=== PATIENT | female | born 1945 | race Native Hawaiian/Other Pacific Islander ===

== ENCOUNTER 2017-06-06 11:59 | Observation (INO) | payer OTHER ==
[~2017-06-06] VITALS: Ht 160 cm; Wt 77.6 kg
[~2017-06-06 11:59] MED LIST: ASPIR-8181 MG PO; ASPIRIN LOW81 MG OR; BENICAR20 MG PO; COZAAR100 MG PO; CRESTOR5 MG PO; ESTRACE0.5 MG PO; GABA100C2 PO; LORAZEPAM0.5 MG PO; MOBIC15 MG PO; PROMSYP53 PO
[2017-06-06 13:07] VITALS: BP 142/77; TEMP 98.7; Ht 160 cm; Wt 77.6 kg
[2017-06-06 13:50] LABS: PLATELET COUNT 284 K/uL (152-353)
[2017-06-06] MEDS ORDERED: SMZ-TMP DS1 TAB OR (15:10)
[2017-06-06] MEDS ORDERED: NYST100010 EX (15:11)
[2017-06-06] MEDS ORDERED: LORA0.5T17 PO (15:11)
[2017-06-06] MEDS ORDERED: TRIA0.1C19 TOP (15:13)
[2017-06-06] MEDS ORDERED: CLARITIN10 M1 PO (15:13)
[2017-06-06 16:00] VITALS: BP 142/77; TEMP 98.4
[2017-06-06 20:00] VITALS: BP 134/63; TEMP 98.3
[2017-06-07] VITALS: BP 110/61; TEMP 98
[2017-06-07 04:00] VITALS: BP 137/62; TEMP 98.1
[2017-06-07 05:01] LABS: PLATELET COUNT 259 K/uL (152-353)
[2017-06-07 07:58] VITALS: BP 129/57; TEMP 98.3
[2017-06-07 12:00] VITALS: BP 131/53; TEMP 98.3
[2017-06-07 16:00] VITALS: BP 145/68; TEMP 97.8
== END 2017-06-07 16:30 | disposition home or self-care (01) ==
LOC: MED/SURG 11:59
PROVIDERS: Emergency Medicine; ADMIT Nurse Practitioner Family
DX: R06.02 Shortness of breath (principal); I10 Essential (primary) hypertension; R05 Cough
CPT/HCPCS: 36415; 36591; 80053; 83735; 85027; 87040; 87070; 87205; 87899; 93005; 94640; 94664; 94760; 96367; 96374; 99220; G0378; G0379

== ENCOUNTER 2017-07-11 08:39 | Outpatient (CLI) | payer OTHER ==
[~2017-07-11 08:39] MED LIST changes: +CLARITIN10 M1 PO; +LORA0.5T17 PO; +NYST100010 EX; +SMZ-TMP DS1 TAB OR; +TRIA0.1C19 TOP
== END 2017-07-11 19:14 | disposition home or self-care (01) ==
LOC: US 08:39
DX: R60.0 Localized edema (principal)

== ENCOUNTER 2018-02-02 16:19 | Outpatient (CLI) | payer OTHER | END 2018-02-02 19:43 | disposition home or self-care (01) | LOC: LABW 16:19 | DX: N30.00 Acute cystitis without hematuria (principal) | CPT/HCPCS: 81000; 87077; 87086; 87088; 87186 ==

== ENCOUNTER 2019-04-08 11:17 | Emergency (ER) | payer OTHER ==
[~2019-04-08] VITALS: Ht 160 cm; Wt 78.5 kg
[2019-04-08 11:30] VITALS: TEMP 98.6
[2019-04-08 12:48] LABS: PLATELET COUNT 292 K/uL (152-353)
[2019-04-08 14:10] VITALS: BP 134/77
== END 2019-04-08 14:10 | disposition home or self-care (01) ==
LOC: ED 11:17
PROVIDERS: Hospitalist
DX: J40 Bronchitis, not specified as acute or chronic (principal); R05 Cough
CPT/HCPCS: 36415; 80048; 85027; 87502; 87651; 99283

== ENCOUNTER 2019-06-27 10:54 | Observation (INO) | payer OTHER ==
[~2019-06-27] VITALS: Ht 160 cm; Wt 85.9 kg
[2019-06-27 10:56] VITALS: BP 140/69; TEMP 97.3
[2019-06-27 11:31] LABS: PLATELET COUNT 226 K/uL (152-353)
[2019-06-27 11:38] LABS: POTASSIUM 3.2 mmol/L (3.6-5.2)
[2019-06-27] MEDS ORDERED: METR250T19 PO (14:26)
[2019-06-27] MEDS ORDERED: CIPRO250 MG PO (14:26)
[2019-06-27] MEDS ORDERED: [UNRECOGNIZED DRUG - OTHER] PO (14:27)
[2019-06-27] MEDS ORDERED: BENICAR40 MG PO (14:27)
[2019-06-27] MEDS ORDERED: REQUIP0.25 MG PO (14:29)
[2019-06-27] MEDS ORDERED: LEXAPRO10 MG PO (14:30)
[2019-06-27] MEDS ORDERED: ZOFRAN8 MG PO (14:32)
[2019-06-27 16:00] VITALS: BP 137/64; TEMP 97.9
[2019-06-27 16:35] VITALS: BP 141/66; TEMP 97.9; Ht 160 cm; Wt 85.9 kg
[2019-06-27 19:45] VITALS: BP 150/66; TEMP 97.9
[2019-06-28] VITALS: BP 137/69; TEMP 97.9
[2019-06-28 03:58] VITALS: BP 142/69; TEMP 97.8
[2019-06-28 05:25] LABS: PLATELET COUNT 161 K/uL (152-353)
[2019-06-28 05:35] LABS: POTASSIUM 4.7 mmol/L (3.6-5.2)
[2019-06-28 08:00] VITALS: BP 160/68; TEMP 98.9
[2019-06-28 12:00] VITALS: BP 134/60; TEMP 98.1
[2019-06-28 16:00] VITALS: BP 144/55; TEMP 97.6
[2019-06-28 20:00] VITALS: BP 118/56; TEMP 98.2
[2019-06-29] VITALS: BP 136/71; TEMP 99.1
[2019-06-29 04:00] VITALS: BP 146/64; TEMP 98.2
[2019-06-29 04:16] LABS: PLATELET COUNT 187 K/uL (152-353)
[2019-06-29 05:05] LABS: POTASSIUM 4.1 mmol/L (3.6-5.2)
[2019-06-29 08:00] VITALS: BP 154/73; TEMP 98.4
[2019-06-30] MEDS ORDERED: METR250T19 PO (19:31)
== END 2019-06-29 11:38 | disposition home or self-care (01) ==
LOC: ED 10:54 → MED/SURG 12:36
PROVIDERS: Family Medicine; ADMIT Emergency Medicine
DX: K52.89 Other specified noninfective gastroenteritis and colitis (principal); N17.8 Other acute kidney failure; E86.0 Dehydration; R19.7 Diarrhea, unspecified; I10 Essential (primary) hypertension; R53.1 Weakness
CPT/HCPCS: 36415; 80053; 81000; 82150; 82550; 83605; 83690; 84484; 85027; 86318; 87040; 93005; 96360; 96361; 96365; 96367; 96375; 99220; 99284; G0378; J0744; J2405; J2765; J3490

== ENCOUNTER 2019-06-30 18:41 | Emergency (ER) | payer OTHER ==
[~2019-06-30] VITALS: Ht 160 cm; Wt 77.1 kg
[~2019-06-30 18:41] MED LIST changes: +BENICAR40 MG PO; +CIPRO250 MG PO; +LEXAPRO10 MG PO; +METR250T19 PO; +REQUIP0.25 MG PO; +ZOFRAN8 MG PO; +[UNRECOGNIZED DRUG - OTHER] PO
[2019-06-30] MEDS ORDERED: METR250T19 PO (19:31)
[2019-06-30 20:34] LABS: PLATELET COUNT 204 K/uL (152-353)
[2019-06-30 23:44] VITALS: BP 174/88; TEMP 99.4
== END 2019-06-30 23:45 | disposition short-term general hospital (02) ==
LOC: ED 18:41
PROVIDERS: Emergency Medicine Emergency Medical Services
DX: N17.8 Other acute kidney failure (principal); N18.9 Chronic kidney disease, unspecified; N04.9 Nephrotic syndrome with unspecified morphologic changes
CPT/HCPCS: 36415; 80053; 83880; 85027; 99284

== ENCOUNTER 2019-06-30 23:25 | Outpatient (CLI) | payer OTHER | END 2019-07-01 00:43 | disposition short-term general hospital (02) | LOC: AMB 23:25 | DX: N17.8 Other acute kidney failure (principal) | CPT/HCPCS: A0425; A0429 ==

== ENCOUNTER 2019-07-31 14:31 | Outpatient (CLI) | payer OTHER ==
[2019-07-31 15:17] LABS: PLATELET COUNT 271 K/uL (152-353)
[2019-07-31 15:58] LABS: POTASSIUM 4.1 mmol/L (3.6-5.2)
== END 2019-07-31 20:11 | disposition home or self-care (01) ==
LOC: RESP 14:31
PROVIDERS: Nurse Practitioner Family
DX: I48.91 Unspecified atrial fibrillation (principal); E86.0 Dehydration; N18.9 Chronic kidney disease, unspecified; R53.83 Other fatigue
CPT/HCPCS: 36415; 80053; 81000; 83880; 85027; 93005

== ENCOUNTER 2019-08-16 08:24 | Outpatient (CLI) | payer OTHER ==
[2019-08-16 10:03] LABS: PLATELET COUNT 226 K/uL (152-353)
== END 2019-08-16 20:18 | disposition home or self-care (01) ==
LOC: LABW 08:24
PROVIDERS: Internal Medicine
DX: N18.4 Chronic kidney disease, stage 4 (severe) (principal); E53.8 Deficiency of other specified B group vitamins; Z79.899 Other long term (current) drug therapy
CPT/HCPCS: 36415; 80053; 81000; 82306; 82330; 82550; 82570; 82607; 82746; 83735; 83970; 84100; 84155; 84439; 84443; 85027; 85651; 86038

== ENCOUNTER 2019-08-22 08:56 | Outpatient (CLI) | payer OTHER ==
[2019-08-22 09:22] LABS: POTASSIUM 3.8 mmol/L (3.6-5.2)
== END 2019-08-22 21:07 | disposition home or self-care (01) ==
LOC: LABW 08:56
PROVIDERS: Internal Medicine
DX: N18.3 Chronic kidney disease, stage 3 (moderate) (principal)
CPT/HCPCS: 36415; 80053

== ENCOUNTER 2019-09-24 12:49 | Outpatient (CLI) | payer OTHER ==
[2019-09-24 13:20] LABS: PLATELET COUNT 284 K/uL (152-353)
[2019-09-24 13:44] LABS: POTASSIUM 4.3 mmol/L (3.6-5.2); SODIUM 141 mmol/L (136-145)
== END 2019-09-24 19:58 | disposition home or self-care (01) ==
LOC: LABW 12:49
PROVIDERS: Nurse Practitioner
DX: N18.4 Chronic kidney disease, stage 4 (severe) (principal); E53.8 Deficiency of other specified B group vitamins
CPT/HCPCS: 36415; 80053; 81000; 82306; 82330; 82570; 82607; 83735; 83970; 84100; 84155; 85027

== ENCOUNTER 2020-07-08 11:39 | Outpatient (CLI) | payer OTHER ==
[2020-07-08 12:26] LABS: PLATELET COUNT 336 K/uL (152-353)
[2020-07-08 12:47] LABS: POTASSIUM 3.8 mmol/L (3.6-5.2)
== END 2020-07-08 19:59 | disposition home or self-care (01) ==
LOC: LABW 11:39
PROVIDERS: ATTEND Internal Medicine Cardiovascular Disease
DX: I10 Essential (primary) hypertension (principal); I25.10 Atherosclerotic heart disease of native coronary artery without angina pectoris; I48.91 Unspecified atrial fibrillation; Z79.899 Other long term (current) drug therapy
CPT/HCPCS: 36415; 80053; 84443; 85027

== ENCOUNTER 2021-05-20 11:48 | Outpatient (CLI) | payer OTHER | END 2021-05-20 21:52 | disposition home or self-care (01) | LOC: CT 11:48 | PROVIDERS: ATTEND Orthopaedic Surgery Foot and Ankle Surgery | DX: S82.62XS Displaced fracture of lateral malleolus of left fibula, sequela (principal); Y92.9 Unspecified place or not applicable ==

== ENCOUNTER 2021-11-17 16:20 | Observation (INO) | payer OTHER ==
[~2021-11-17] VITALS: Ht 160 cm; Wt 92.8 kg
[~2021-11-17 16:20] MED LIST changes: +METHYLPRED4 M1; +Z-PAK PO
[2021-11-17 17:46] VITALS: BP 143/65; TEMP 97.4; Ht 160 cm; Wt 92.8 kg
[2021-11-17 18:43] LABS: PLATELET COUNT 239 K/uL (152-353)
[2021-11-17 18:56] LABS: POTASSIUM 3.7 mmol/L (3.6-5.2)
[2021-11-17 20:13] VITALS: BP 127/53; TEMP 98.2
[2021-11-17] MEDS ORDERED: AMLODIPINE BESYLATE PO (20:57)
[2021-11-17] MEDS ORDERED: LORA0.5T17 PO (20:57)
[2021-11-17] MEDS ORDERED: FURO20TA67 PO (20:58)
[2021-11-17] MEDS ORDERED: ELIQUIS5 MG PO (20:59)
[2021-11-17] MEDS ORDERED: ROSU10TA PO (21:00)
[2021-11-17] MEDS ORDERED: MECLIZINE25 MG PO (21:02)
[2021-11-17] MEDS ORDERED: ALBU90AE13 INH (21:03)
[2021-11-17] MEDS ORDERED: HYDR5TAB9 PO (21:04)
[2021-11-17 23:51] VITALS: BP 161/52; TEMP 97.8
[2021-11-18 04:11] VITALS: BP 107/47; TEMP 98.8
[2021-11-18 05:17] LABS: PLATELET COUNT 188 K/uL (152-353)
[2021-11-18 05:39] LABS: POTASSIUM 3.8 mmol/L (3.6-5.2)
[2021-11-18 08:00] VITALS: BP 135/61; BP 142/50; TEMP 98.7; TEMP 98.9
[2021-11-18 12:00] VITALS: BP 128/56; TEMP 98.7
[2021-11-18 16:00] VITALS: BP 135/54; TEMP 98.5
[2021-11-18 20:00] VITALS: BP 132/61; TEMP 98.8
[2021-11-19] VITALS: BP 171/74; TEMP 98.7
[2021-11-19 04:00] VITALS: BP 141/61; TEMP 98.6
[2021-11-19 04:41] LABS: PLATELET COUNT 199 K/uL (152-353)
[2021-11-19 05:07] LABS: POTASSIUM 3.7 mmol/L (3.6-5.2)
[2021-11-19 08:00] VITALS: BP 141/69; TEMP 99.4
[2021-11-19 12:00] VITALS: BP 176/72; TEMP 98.4
[2021-11-19 16:00] VITALS: BP 121/50; TEMP 98.2
[2021-11-19 20:00] VITALS: BP 119/41; BP 131/63; TEMP 97.9; TEMP 98
[2021-11-20] VITALS: BP 133/64; TEMP 98.5
[2021-11-20 04:00] VITALS: BP 142/79; TEMP 98.2
[2021-11-20 08:00] VITALS: BP 113/74; TEMP 98.2
[2021-11-20 11:59] VITALS: BP 119/69; TEMP 97.9
[2021-11-20] MEDS ORDERED: BENZONATATE100 MG PO (12:25)
[2021-11-20] MEDS ORDERED: LEVAQUIN250 MG PO (12:26)
[2021-11-20] MEDS ORDERED: PRED10TA27 PO ×3 (12:29→12:31)
== END 2021-11-20 14:44 | disposition home or self-care (01) ==
LOC: MED/SURG 16:20
PROVIDERS: ADMIT Internal Medicine; ATTEND Internal Medicine
DX: R06.09 Other forms of dyspnea (principal); F41.8 Other specified anxiety disorders; E78.49 Other hyperlipidemia; R07.89 Other chest pain; J18.8 Other pneumonia, unspecified organism; J40 Bronchitis, not specified as acute or chronic
CPT/HCPCS: 36415; 80053; 81000; 82550; 84484; 85027; 87070; 87205; 87635; 93005; 94640; 94664; 94667; 94760; 96360; 96361; 96367; 96372; 96374; 96375; 99220; G0378; G0379; J1650; J1885; J1956; J2920; U0003

== ENCOUNTER 2021-11-30 11:41 | Inpatient (IN) | payer OTHER ==
[2021-11-30] VITALS (7 sets, daily range): BP systolic 120–173; BP diastolic 52–96; TEMP 97.7–98.5; Ht 160 cm; Wt 91.2 kg
[~2021-11-30] VITALS: Ht 160 cm; Wt 91.2 kg
[~2021-11-30 11:41] MED LIST changes: +ALBU90AE13 INH; +AMLODIPINE BESYLATE PO; +BENZONATATE100 MG PO; +ELIQUIS5 MG PO; +FURO20TA67 PO; +HYDR5TAB9 PO; +LEVAQUIN250 MG PO; +MECLIZINE25 MG PO; +PRED10TA27 PO; +ROSU10TA PO
[2021-11-30 12:33] LABS: PLATELET COUNT 312 K/uL (152-353)
[2021-11-30] MEDS ORDERED: HYDROCODONE BIT1 TA2 PO (17:22)
[2021-11-30] MEDS ORDERED: AMIODARONE HYD200 MG PO (17:29)
[2021-11-30] MEDS ORDERED: PROMETHAZI6.25 MG/5 PO (17:35)
[2021-12-01 04:10] VITALS: BP 114/56; TEMP 98.3
[2021-12-01 08:00] VITALS: BP 123/64; TEMP 98.9
[2021-12-01 09:37] LABS: PLATELET COUNT 219 K/uL (152-353)
[2021-12-01 09:38] LABS: POTASSIUM 4.5 mmol/L (3.6-5.2)
[2021-12-01 12:00] VITALS: BP 126/63; TEMP 98.2
[2021-12-01 16:26] VITALS: BP 117/56; TEMP 97.9
[2021-12-01 19:31] VITALS: BP 115/56; TEMP 98.3
[2021-12-02] VITALS: BP 110/44; TEMP 98.1
[2021-12-02 03:37] VITALS: BP 116/49; TEMP 98.2
[2021-12-02 05:34] LABS: PLATELET COUNT 229 K/uL (152-353)
[2021-12-02 05:44] LABS: POTASSIUM 4.4 mmol/L (3.6-5.2)
[2021-12-02 08:00] VITALS: BP 139/67; TEMP 98.3
[2021-12-02 12:00] VITALS: BP 118/59; TEMP 97.7
[2021-12-02 16:07] VITALS: BP 102/48; TEMP 98.1
[2021-12-02 20:00] VITALS: BP 129/58; TEMP 97.7
[2021-12-03] VITALS: BP 109/50; TEMP 97.5
[2021-12-03 04:00] VITALS: BP 112/48; TEMP 97.5
[2021-12-03 04:52] LABS: PLATELET COUNT 225 K/uL (152-353)
[2021-12-03 05:30] LABS: POTASSIUM 4.9 mmol/L (3.6-5.2)
[2021-12-03 08:00] VITALS: BP 127/59; TEMP 98.4
[2021-12-03 12:00] VITALS: BP 128/54; TEMP 97.8
[2021-12-03 16:00] VITALS: BP 121/54; TEMP 98.3
[2021-12-03 20:00] VITALS: BP 113/42; TEMP 98.5
[2021-12-04] VITALS: BP 112/46; TEMP 98.4
[2021-12-04 04:00] VITALS: BP 113/53; TEMP 98.3
[2021-12-04 05:06] LABS: PLATELET COUNT 235 K/uL (152-353)
[2021-12-04 05:28] LABS: POTASSIUM 4.7 mmol/L (3.6-5.2)
[2021-12-04 08:00] VITALS: BP 125/62; TEMP 98.2
[2021-12-04 12:00] VITALS: BP 147/69; TEMP 97.7
[2021-12-04] MEDS ORDERED: BENZONATATE100 MG PO (13:30)
[2021-12-04] MEDS ORDERED: PRED10TA27 PO (13:33)
[2021-12-04] MEDS ORDERED: DOXYCYCLINE100 MG PO (13:48)
[2021-12-04] MEDS ORDERED: MUCINEX600 MG PO (13:51)
== END 2021-12-04 15:30 | disposition home or self-care (01) | DRG 194 ==
LOC: ED 11:41 → MED/SURG 15:00 → UNDODEPER 12-01 13:10 → MED/SURG 12-04 15:30
PROVIDERS: ADMIT Emergency Medicine Emergency Medical Services; ATTEND Internal Medicine
DX: J18.8 Other pneumonia, unspecified organism (principal); S22.42XA Multiple fractures of ribs, left side, initial encounter for closed fracture; J90 Pleural effusion, not elsewhere classified; I13.0 Hypertensive heart and chronic kidney disease with heart failure and stage 1 through stage 4 chronic kidney disease, or unspecified chronic kidney disease; N18.4 Chronic kidney disease, stage 4 (severe); X58.XXXA Exposure to other specified factors, initial encounter; Y92.89 Other specified places as the place of occurrence of the external cause; I48.0 Paroxysmal atrial fibrillation; E78.49 Other hyperlipidemia; F41.8 Other specified anxiety disorders; I50.9 Heart failure, unspecified
CPT/HCPCS: 36415; 80048; 80053; 83880; 84484; 85027; 85379; 87635; 93005; 94664; 94760; 96365; 96375; 99284; J1335; J2270; J2405; J2920; J3490; Q9963; U0003

== ENCOUNTER 2022-10-21 22:50 | Emergency (ER) | payer OTHER ==
[~2022-10-21] VITALS: Ht 160 cm; Wt 90.3 kg
[2022-10-21 22:50] VITALS: TEMP 97.2
[~2022-10-21 22:50] MED LIST changes: +AMIODARONE HYD200 MG PO; +DOXYCYCLINE100 MG PO; +HYDROCODONE BIT1 TA2 PO; +MUCINEX600 MG PO; +PROMETHAZI6.25 MG/5 PO
[2022-10-21 23:35] LABS: PLATELET COUNT 257 K/uL (152-353)
[2022-10-21 23:54] LABS: POTASSIUM 4.5 mmol/L (3.6-5.2)
[2022-10-21 23:59] LABS: PARTIAL THROMBOPLASTIN TIME 25.8 SECONDS (24.5-33.6)
[2022-10-22 02:05] VITALS: BP 152/68
== END 2022-10-22 02:05 | disposition short-term general hospital (02) ==
LOC: ED 22:50
PROVIDERS: Emergency Medicine
DX: R07.89 Other chest pain (principal); R94.31 Abnormal electrocardiogram [ECG] [EKG]; Z79.899 Other long term (current) drug therapy; Z79.01 Long term (current) use of anticoagulants; R06.02 Shortness of breath
CPT/HCPCS: 36415; 80053; 83735; 83880; 84484; 85027; 85379; 85610; 85730; 93005; 96374; 96375; 99284; J2270; J2405